=== PATIENT | male | born 1975 | race Hispanic/Latino ===

== ENCOUNTER 2024-09-13 07:45 | Day surgery (SDC) | payer BC ==
[~2024-09-13] VITALS: Ht 172.7 cm; Wt 111.4 kg
[~2024-09-13 07:45] MED LIST: CEFAZOLIN SODIUM 2 GM/20 ML SYR IV SCH; IBLOOD GLUCOSE TEST STRIP 1 EA TEST VI PRN; KETOROLAC TROMETHAMINE 30 MG/ML VIAL ONE; LACTATED RINGER'S 1,000 ML IV SCH; LIDOCAINE HCL 1% 5 ML SDV INJ ONE; MIDAZOLAM HCL 2 MG/2 ML VIAL IV PRN; NALOXONE HCL 0.4 MG SYR IV PRN; fentaNYL citrate 50 MCG/ML SDV IV PRN; ondansetron HCL 4 MG/2 ML VIAL IV PRN
[2024-09-13] MEDS ORDERED: propofoL 200 MG/20 ML VIAL ONE (08:01)
[2024-09-13] MEDS ORDERED: MIDAZOLAM HCL 2 MG/2 ML VIAL ONE (08:01)
[2024-09-13] MEDS ORDERED: fentaNYL citrate 100 MCG/2 ML VIAL ONE (08:01)
[2024-09-13] MEDS ORDERED: LIDOCAINE HCL 2% 5 ML SDV ONE (08:01)
[2024-09-13] MEDS ORDERED: KETOROLAC TROMETHAMINE 30 MG/ML VIAL ONE (08:01)
[2024-09-13] MEDS ORDERED: DEXAMETHASONE SOD PHOS 4 MG/ML VIAL ONE (08:01)
[2024-09-13] MEDS ORDERED: ondansetron HCL 4 MG/2 ML VIAL ONE (08:01)
[2024-09-13 08:04] VITALS: BP 117/77
[2024-09-13] MEDS ORDERED: KETOROLAC TROMETHAMINE 15 MG/ML VIAL IV PRN (08:45)
[2024-09-13] MEDS ORDERED: HYDROCODONE/ACETA 5/325 TAB PO PRN (08:45)
[2024-09-13] MEDS ORDERED: ACETAMINOPHEN 1,000 MG/100 ML VIAL ONE (08:48)
[2024-09-13] MEDS ORDERED: DICLOFENAC SOD 75 MG TABEC PO SCH (09:00)
[2024-09-13] MEDS ORDERED: DICLOFENAC SODI75 MG PO (09:27)
[2024-09-13] MEDS ORDERED: HYDROCODON-ACE1 EA10 PO (09:27)
--- NOTE | 2024-09-13 09:40 | NUR ---
09/13/24 0939 Neema Mauro 0926-PT ARRIVES TO PACU VIA STRETCHER, RESTING SEMI FOWLERS, PT NOT RESPONSIVE TO NOXIOUS STIMULI, OPA IN PLACE, VSS ON 6L VIA MASK, RR EVEN AND UNLABORED. LLE ELEVATED ON PILLOW AND ICE PACK APPLIE TO KNEE 0934-PT AWAKENS ON OWN, OPA REMOVED AND TITRATED TO RA, VS REMAIN STABLE, RR EVEN AND UNLABROED. PT DENIES PAIN OR NAUSEA.
[2024-09-13 09:50] VITALS: BP 116/82
--- NOTE | 2024-09-13 09:50 | NUR ---
PT ARRIVED BACK TO DS ON RA, AAOX3, AND ANSWERING QUESTIONS APPROPRIATELY. IN ROOM UPON PTS RETURN. REPORT RECEIVED FROM LICENSED OPTICAL DISPENSER AND SURGICAL SITE VISUALIZED WITH LICENSED OPTICAL DISPENSER. DRSG APPEARS CDI. VS TAKEN, STABLE. IV SITE ASSESSED, PATENT, AND INFUSING LR PER ORDERS. PT WITH LLE ELEVATED AT APPROX HEART LEVEL WITH ICE PACK IN PLACE. PT DENIES PAIN AND NAUSEA WHEN ASKED. PT PROVIDED ICE WATER, COFFEE, PUDDING, AND PABLO CRACKERS. ALL QUESTIONS ANSWERED. BED IN LOW POSITION WITH WHEELS LOCKED AND BILAT RAILS IN PLACE. CALL LIGHT WITHIN PT REACH.
[2024-09-13 10:45] VITALS: BP 128/74
--- NOTE | 2024-09-13 10:55 | NUR ---
1035-INTO PTS ROOM FOR DISCHARGE EDUCATION. PTS IWFE AT BEDSIDE. PT PROVIDED WITH POST-OPERATIVE F/U APPT, DR. FLORES AFTER HOURS PHONE NUMBER, AND DR. FLORES OFFICE POST-OP INSTRUCTIONS FOR KNEE ARTHROSCOPY HANDOUT. DISCUSS COLD THERAPY SAFETY AND ENSUREING BARRIER IN PLACE BETWEEN SKIN AND ICE PACK. ALSO DISCUSSED REMOVAL OF POST-OP DRESSING ON DAY 3 AND COVERING OF SURGICAL SITE FOR SHOWERS. PT AWARE SUTURES MAY NOT GET WET UNTIL THEY ARE REMOVED IN DR. FLORES OFFICE AT F/U APPT. PT WAS EDUCATED ON NEW RX'S AND HOW TO TAKE THEM. PT EDUCATED NOT TO TAKE ANY OTHER NSAIDS (ALEVE, NAPROXEN, IBU, ADVIL) W/DICLOFENAC TO RISK OF BLEEDING/STOMACH ULCERS. PT AND VERBALIZED UNDERSTADNNING AND ALL QUESTIONS WERE ANSWERED. 1045-VS TAKEN AND ROUTINE REASSESSMENT COMPLETED. PT CONT TO DENY PAIN OR NAUSEA WHEN ASKED. SURGICAL DRSG VISUALIZED AND REMAINS CDI. IV SITE ASSESSED. ICE IN PLACE TO SURGICAL SITE AND LLE IS ELEVATED AT APPROX HEART LEVEL. PT EATING AND DRINKING WELL. 1050-PT FEELS HE MAY BE ABLE TO VOID IF HE TRIES. IV SL'D. PT ASSISTED TO SITTING UP ON EOB. PT AMBULATED ACROSS CARTER TO RESTROOM WITH RN SBA FOR SAFETY. PT ABLE TO VOID APPROX 250 ML OF CLR, YELLOW URINE. 1053-PT SITTING ON EOB WITH , PERSONAL BELONINGS, AND CALL LIGHT WITHIN REACH. PT DRESSING FOR DISCHARGE. 1055-IV REMOVED, TIP APPEARS INTACT. PRESSURE DRSG APPLIED WITH GAUZE AND COBAN. LEFT TO PULL CAR AROUND TO FRONT FOR PTS DISCHARGE. ICE PACK REFILLED. ICE WATER CUP ALSO REFILLED.
--- NOTE | 2024-09-13 11:00 | NUR ---
PT DISCHARGED FROM DS VIA WC TO PASSENGER SIDE OF WIFES VEHICLE. ALL PERSONAL BELONINGS TAKEN WITH PT.
[2024-09-13] MEDS ORDERED: SEVOFLURANE 250 ML BTL INH ONE (17:11)
--- NOTE | 2024-09-14 13:10 | OR ---
[facility] [address], [place] [address] Signed DATE OF OPERATION: 09/13/2024 SURGEON: Samantha Gallo MD PREOPERATIVE DIAGNOSIS: Lateral meniscus tear, left knee. POSTOPERATIVE DIAGNOSES: Lateral meniscus tear and medial meniscus tear, left knee. PROCEDURE PERFORMED: Left knee arthroscopy with partial, medial and lateral meniscectomies. OUTBOARD MOTOR INSPECTOR: None. ANESTHESIA: General. BLOOD LOSS: Minimal. BRIEF HISTORY: Emanuel is a 49-year-old gentleman with pain and instability in his knee. MRI was consistent with fairly large lateral meniscus tear. Risks, benefits, and alternatives of surgery were discussed with him, he elected to proceed. Once consent was obtained, he was taken to the operating room. After adequate anesthesia, he was placed on the operating room table. All downside pressure points were well padded. The right leg was flexed, abducted and externally rotated on a well-padded leg leal. Left leg was placed in a well-padded leg leal and prepped and draped in a standard sterile fashion. The portal sites were injected with 0.25% Marcaine with epinephrine. The standard inferolateral and superolateral portals were established and the scope was introduced in the knee. All chondral surfaces were essentially intact. The patella was noted to track well. Medial and lateral gutters were clear. Medial meniscus showed a large complex tear from the medial extending to the posteromedial horn. The lateral meniscus showed a small tear in the mid medial portion. The lateral meniscus also had a large flap that was folded back up underneath itself. DESCRIPTION OF OPERATION: Standard inferomedial portal was established after localization using a spinal needle. Electronically Signed By: SAMANTHA GALLO MD 09/14/24 1310 PATIENT NAME: EMANUEL CARO JR OPERATIVE REPORT DATE OF : 73 REPORT #: [id number] PHYSICIAN: SAMANTHA GALLO MD PCP: SEAN ARREOLA DO REPORT IS CONFIDENTIAL AND NOT TO BE RELEASED WITHOUT AUTHORIZATION [facility] [address], [place] [address] Signed The straight and curved biters were used to trim both meniscus tears back to stable rims anteriorly and posteriorly. This was then smoothed and feathered using the shaver and all debris was evacuated. The scope was then withdrawn. Portals closed with 3-0 nylon and dressed with Adaptic, ABD, and Joshua wrap. He tolerated the procedure well. All sponge, needle, and instrument counts were correct. Samantha Gallo MD BA/MODL /[id number] Copies: ~ Electronically Signed By: SAMANTHA GALLO MD 09/14/24 1310 PATIENT NAME: EMANUEL CARO JR OPERATIVE REPORT DATE OF : 73 REPORT #: [id number] PHYSICIAN: SAMANTHA GALLO MD PCP: SEAN ARREOLA DO REPORT IS CONFIDENTIAL AND NOT TO BE RELEASED WITHOUT AUTHORIZATION
== END 2024-09-13 11:00 | disposition home or self-care (01) ==
LOC: DS 07:45
PROVIDERS: ATTEND Specialist
PROC: 0SBD4ZZ Excision of Left Knee Joint, Percutaneous Endoscopic Approach (ICD-10-PCS; 2024-09-13)
PROC: 0SBD4ZZ Excision of Left Knee Joint, Percutaneous Endoscopic Approach (ICD-10-PCS; principal; 2024-09-13 09:30)
DX: S83.232A Complex tear of medial meniscus, current injury, left knee, initial encounter (principal); S83.282A Other tear of lateral meniscus, current injury, left knee, initial encounter; Z98.890 Other specified postprocedural states; X58.XXXA Exposure to other specified factors, initial encounter
CPT/HCPCS: 01400; 80053; 85025; J0131; J0690; J1100; J1885; J2003; J2250; J2405; J2704; J3010; J7121

== ENCOUNTER 2024-10-21 08:18 | Day surgery (SDC) | payer OTHER, BC ==
[~2024-10-21] VITALS: Ht 172.7 cm; Wt 111.4 kg
[~2024-10-21 08:18] MED LIST changes: +DICLOFENAC SODI75 MG PO; +HYDROCODON-ACE1 EA10 PO; -KETOROLAC TROMETHAMINE 30 MG/ML VIAL ONE; -MIDAZOLAM HCL 2 MG/2 ML VIAL IV PRN; -NALOXONE HCL 0.4 MG SYR IV PRN; +TRANEXAMIC ACID IN NACL,ISO-OS 1,000 MG/100 ML PIGGYBACK IV SCH; -fentaNYL citrate 50 MCG/ML SDV IV PRN; -ondansetron HCL 4 MG/2 ML VIAL IV PRN
[2024-10-21 08:38] VITALS: BP 115/73
[2024-10-21] MEDS ORDERED: MIDAZOLAM HCL 2 MG/2 ML VIAL ONE (09:41)
[2024-10-21] MEDS ORDERED: Ropivacaine HCl 0.5% 30 ML VIAL ONE (09:41)
[2024-10-21] MEDS ORDERED: DEXAMETHASONE SOD PHOS 4 MG/ML VIAL ONE (09:41)
[2024-10-21] MEDS ORDERED: LIDOCAINE HCL 2% 5 ML SDV ONE ×2 (09:41→10:41)
[2024-10-21] MEDS ORDERED: propofoL 200 MG/20 ML VIAL ONE (10:41)
--- NOTE | 2024-10-21 11:22 | NUR ---
PT ROTATED FROM L SIDE TO STOMACH. PT TO REMAIN ON STOMACH FOR 15 MINS. CALL LIGHT WITHIN PT REACH.
[2024-10-21] MEDS ORDERED: ondansetron HCL 4 MG/2 ML VIAL IV PRN (11:30)
[2024-10-21] MEDS ORDERED: PROCHLORPERAZINE EDISYLATE 10 MG/2 ML VIAL IV PRN (11:30)
[2024-10-21] MEDS ORDERED: fentaNYL citrate 50 MCG/ML SDV IV PRN (11:30)
[2024-10-21] MEDS ORDERED: NALOXONE HCL 0.4 MG SYR IV PRN (11:30)
[2024-10-21] MEDS ORDERED: HYDROmorphone HCL 1 MG/ML SYR IV PRN (11:30)
[2024-10-21] MEDS ORDERED: droPERidol 5 MG/2 ML VIAL IV PRN (11:30)
[2024-10-21] MEDS ORDERED: IBLOOD GLUCOSE TEST STRIP 1 EA TEST VI PRN (11:30)
[2024-10-21] MEDS ORDERED: ePHEDrine sulfate 50 MG/ML AMP ONE (11:45)
[2024-10-21] MEDS ORDERED: ondansetron HCL 4 MG/2 ML VIAL ONE (12:02)
--- NOTE | 2024-10-21 12:29 | NUR ---
10/21/24 1229 Neema Mauro 1218-PT ARRIVES TO PACU VIA STRETCHER, PT NOT RESPONISVE TO VERBAL OR TACTILE STIMULI, RESTING W/ EYES CLOSED, VSS ON 6L VIA MASK, RR EVEN AND UNLABORED. LT ARM ELEVATED ON PILLOW AND ICE APPLIED.
[2024-10-21] MEDS ORDERED: HYDROCODONE/ACETA 7.5/325 TAB PO PRN (12:30)
--- NOTE | 2024-10-21 12:52 | NUR ---
PT ARRIVES TO DS DEPT FROM PACU VIA STRETCHER. PT IS A&O AND REPORTS NO PAIN AT THIS TIME. PT ASKING QUESTIONS APPROPRIATELY. PT REPORTS NO NAUSEA. PT TOLERATES SIPS OF ICE WATER AND APPLESAUCE/CRACKERS WITHOUT DIFFICULTY SWALLOWING. DRESSING C/D/I, VISUALIZED W/SHANE FOSTER. REPORT RECEIVED FROM SHANE FOSTER W/PT AT BEDSIDE.CALL LIGHT WITHIN REACH, PT STATES NO FURTHER NEEDS OR QUESTIONS AT THIS TIME.
[2024-10-21 12:53] VITALS: BP 118/79
--- NOTE | 2024-10-21 13:30 | NUR ---
PT CONSUMED 100% OF SNACK AND CONTINUES TO DRINK ICE WATER. PT STATES NO PAIN AT THIS TIME, REMAINS COMPLETELY NUMB AND UNABLE TO MOVE LFT ARM. CALL LIGHT WITHIN REACH, PT STATES NO FURTHER QUESTIONS OR NEEDS AT THIS TIME. AT BEDSIDE.
--- NOTE | 2024-10-21 13:40 | NUR ---
IN PT ROOM FOR VS AND ASSESSMENT. NO ACUTE CHANGES FROM PREVIOUS ASSESSMENT. PT GETTING DRESSED AT THIS TIME. PT IN ROOM TO ASSIST. CALL LIGHT WITHIN REACH.
[2024-10-21 13:43] VITALS: BP 108/67
--- NOTE | 2024-10-21 13:50 | NUR ---
IN PT ROOM FOR DC EDUCATION. PT STATES VERBAL UNDERSTANDING AND STATES NO FURTHER QUESTIONS OR NEEDS AT THIS TIME. PT AT BEDSIDE FOR DC EDUCATION AND STATES NO FURTHER NEEDS OR QUESTIONS AT THIS TIME. PT OFF OF UNIT VIA WC TO PASSENGER SIDE OF VEHICLE. ALL BELONGINGS IN PT POSSESSION AT THIS TIME. ICE PACK PROVIDED.
[2024-10-21] MEDS ORDERED: SEVOFLURANE 250 ML BTL INH ONE (16:18)
[2024-10-21] MEDS ORDERED: CELECOXIB 200 MG CAP PO SCH (17:00)
--- NOTE | 2024-10-22 16:39 | OR ---
[facility] [address] [place], [place] [address] Signed DATE OF OPERATION: 10/21/2024 SURGEON: Samantha Gallo MD PREOPERATIVE DIAGNOSIS: Left distal biceps rupture. POSTOPERATIVE DIAGNOSIS: Left distal biceps rupture. PROCEDURE PERFORMED: Left distal biceps repair. ENVELOPE FOLDER: Jessie Mcneil PA-C. Jessie was present and critical for all portion of procedure. ANESTHESIA: General. BLOOD LOSS: None. TOURNIQUET TIME: 52 minutes. IMPLANT: Arthrex button. BRIEF HISTORY: Emanuel is a 49-year-old gentleman, who suffered a work injury resulting in the rupture of the distal biceps. Risks, benefits, and alternatives of surgery were discussed with him and he elected to proceed. Once consent was obtained, he was taken to the operating room. After adequate anesthesia he was placed on operating table with hand table. The arm was prepped and draped in a standard sterile fashion. The arm was then placed in a sterile tourniquet. The arm was exsanguinated using Esmarch bandage. Tourniquet inflated to 200 mmHg. A 1.5-inch incision was made longitudinally over the distal biceps insertion, carried through skin and subcutaneous tissue. Careful dissection was undertaken and the neurovascular structures were carefully identified, retracted and protected. We did tear one small vein and this was tied off with 2-0 silk. The distal Electronically Signed By: SAMANTHA GALLO MD 10/22/24 1639 PATIENT NAME: EMANUEL CARO ANGEL OPERATIVE REPORT DATE OF : 73 REPORT #: [id number] PHYSICIAN: SAMANTHA GALLO MD PCP: SEAN ARREOLA DO REPORT IS CONFIDENTIAL AND NOT TO BE RELEASED WITHOUT AUTHORIZATION [facility] [address], [place] [address] Signed biceps were readily identifiable and was released from the skin surrounding scar tissue and it was debrided. This was then carefully into a point. The FiberWire loop suture was then placed around it in a four sutures to hold the tendon. This was then tacked back up into the upper arm. The biceps tendon track was then developed down to the tuberosity which was readily visible. This was then cleared of soft tissue and using the Endobutton drill, we drilled through both cortices. We then carefully irrigated and removed all of the bone debris. The superior surface was then chronically reamed with a 7 mm reamer. The Endobutton was then placed on the sutures in reverse mattress configuration. The Endobutton was then placed through both bone holes and flipped on the opposite side. The arm was then bent 20 degrees. It should be noted that the arm was kept in full supination throughout the procedure. The tendon was then advanced down into the hole. The one limb of the suture was then placed back through the tendon and was it tied. There was no room to put the interference screw in. We then tied the FiberWire suture tightly. The sutures were then cut. Once this was completed, rotation of forearm demonstrated good motion of the biceps tendon. The tourniquet was then released. Any remaining bleeders were cauterized. The wound was copiously irrigated one more time and closed with 2-0 Monocryl and 3-0 Stratafix. Wound was sealed with LiquiBand, dressed with Allevyn and an Joshua wrap. He was placed into a sling. He tolerated the procedure well. All sponge, needle, and instrument counts were correct. Samantha Gallo MD BA/MARÍA /[id number] Copies: ~ Electronically Signed By: SAMANTHA GALLO MD 10/22/24 1639 PATIENT NAME: VANIAEMANUEL JR OPERATIVE REPORT DATE OF : 73 REPORT #: [id number] PHYSICIAN: SAMANTHA GALLO MD PCP: SEAN ARREOLA DO REPORT IS CONFIDENTIAL AND NOT TO BE RELEASED WITHOUT AUTHORIZATION
== END 2024-10-21 14:00 | disposition home or self-care (01) ==
LOC: DS 08:18
PROVIDERS: ATTEND Specialist
PROC: 0LQ60ZZ Repair Left Lower Arm and Wrist Tendon, Open Approach (ICD-10-PCS; principal; 2024-10-21 11:30)
DX: S46.212A Strain of muscle, fascia and tendon of other parts of biceps, left arm, initial encounter (principal); X58.XXXA Exposure to other specified factors, initial encounter
CPT/HCPCS: 01710; 64415; C1713; J0690; J1100; J2003; J2250; J2405; J2704; J2795; J7121